=== PATIENT | female | born 1990 | race African-American/Black ===

== ENCOUNTER 2020-12-07 11:58 | Emergency (ER) | payer SELFPAY ==
[~2020-12-07] VITALS: Ht 188 cm; Wt 82.0 kg
[2020-12-07] MEDS ORDERED: DIPHENHYDRAMINE 50MG/ML VIAL IM STA (13:21)
[2020-12-07] MEDS ORDERED: ZIPRASIDONE MESYLATE 20MG/VIAL IM STA (13:21)
[2020-12-07] MEDS ORDERED: LORAZEPAM 2MG/ML CPJ IM STA (13:21)
[2020-12-07] MEDS ORDERED: SODIUM CHLORIDE 0.9% 1,000 ML IV ONE ×3 (13:30→16:30)
[2020-12-07] MEDS ORDERED: KETAMINE HCL 50 MG/ML 10ML IM ONE (14:30)
[2020-12-07] MEDS ORDERED: LORAZEPAM 2MG/ML CPJ IV ONE (15:00)
[2020-12-07 15:01] LABS: CLARITY URINE CLEAR (CLEAR); COLOR URINE YELLOW (YELLOW); KETONES URINE NEGATIVE (NEGATIVE); LEUKOCYTE ESTERASE URINE TRACE (NEGATIVE); NITRITE URINE NEGATIVE (NEGATIVE); OCCULT BLOOD URINE NEGATIVE (NEGATIVE); PROTEIN URINE NEGATIVE (NEGATIVE); SPECIFIC GRAVITY URINE 1.016 (1.005-1.030)
[2020-12-07 15:19] LABS: BASOPHILS % 0.4 % (0.0-2.0); EOSINOPHILS % 0.3 % (0.0-5.0); HEMATOCRIT. 41.2 % (36.0-48.0); HEMOGLOBIN. 13.5 g/dL (12.0-16.0); MEAN CORPUSCULAR HEMOGLOBIN 29.6 pg (28.0-32.0); MEAN CORPUSCULAR VOLUME 90.6 fL (81.0-99.0); MEAN PLATELET VOLUME 8.8 fl (7.4-10.4); MONOCYTES % 5.9 % (2.0-8.0); NEUTROPHILS % 83.4 % (40.0-76.0); PLATELET 212 x1000/uL (130-400); RED BLOOD CELL COUNT 4.55 mill/uL (4.2-5.4); RED CELL DISTRIBUTION WIDTH 14.8 % (11.6-14.6)
[2020-12-07 15:27] LABS: CHLORIDE 107 mEq/L (98-107)
[2020-12-07 15:31] LABS: ETHANOL BLOOD < 10 mg/dL
[2020-12-07 16:02] LABS: *AMPHETAMINES SCREEN URINE NEGATIVE (NEGATIVE); *BARBITURATES SCREEN URINE NEGATIVE (NEGATIVE); *BENZODIAZEPINES SCREEN URINE NEGATIVE (NEGATIVE); METHADONE URINE SCREEN NEGATIVE (NEGATIVE)
[2020-12-07 16:04] LABS: OPIATES URINE SCREEN NEGATIVE (NEGATIVE); PHENCYCLIDINE URINE SCREEN NEGATIVE (NEGATIVE)
[2020-12-07 16:19] LABS: *COCAINE SCREEN URINE PRESUMTIVE POSITIVE (NEGATIVE); CANNABINOID URINE SCREEN PRESUMTIVE POSITIVE (NEGATIVE)
[2020-12-07 17:52] LABS: CHLORIDE 110 mEq/L (98-107)
[2020-12-07] MEDS ORDERED: HALOPERIDOL LACTATE 5MG/ML VIAL IM ONE (18:15)
[2020-12-07] MEDS ORDERED: LORAZEPAM 2MG/ML CPJ IM ONE (18:15)
[2020-12-08 00:45] VITALS: BP 118/76
== END 2020-12-08 01:00 | disposition home or self-care (01) ==
LOC: ER 11:58
DX: F14.121 Cocaine abuse with intoxication with delirium (principal); F12.10 Cannabis abuse, uncomplicated; Z78.1 Physical restraint status
CPT/HCPCS: 36415; 80048; 80053; 80305; 80320; 81003; 85025; 96360; 96372; 99291; J1200; J2060; J3486; J7030; J3490; G0480